=== PATIENT | female | born 1965 | race African-American/Black ===

== ENCOUNTER 2018-02-21 07:09 | Day surgery (SDC) | payer BC ==
[2018-02-20 14:51] VITALS: BMI 43.0
[2018-02-21 08:43] VITALS: TEMP 98.1
[2018-02-21] MEDS ORDERED: LIDOCAINE HCL/PF 2% SDV 5ML VIAL ONE (08:53)
[2018-02-21] MEDS ORDERED: PROPOFOL 20 ML ONE ×2 (08:53)
[2018-02-21 10:10] VITALS: BP 143/81; PULSE 66
== END 2018-02-21 10:10 | disposition home or self-care (01) ==
LOC: JASU-ENDO 07:09
PROVIDERS: ATTEND Surgery
PROC: 0DJ08ZZ Inspection of Upper Intestinal Tract, Via Natural or Artificial Opening Endoscopic (ICD-10-PCS; principal; 2018-02-21 08:00)
DX: E66.8 Other obesity (principal); Z98.84 Bariatric surgery status; Z98.0 Intestinal bypass and anastomosis status
CPT/HCPCS: 74247-TC-FY; 84703